=== PATIENT | male | born 2000 | race African-American/Black ===

== ENCOUNTER 2023-12-22 21:19 | Emergency (ER) | payer OTHER, SELFPAY ==
[2023-12-22 21:21] VITALS: BP 126/91; PULSE 88; RESP 18; TEMP 36.6; O2SAT 97; BMI 21.9
[2023-12-22 21:26] VITALS: O2SAT 97
[2023-12-22] MEDS: Albuterol Sulfate 8 gm Inhaler (60 puffs) 2 PUFF INHALATION (21:42)
== END 2023-12-22 22:02 | disposition home or self-care (01) ==
LOC: ED 21:59
PROVIDERS: Emergency Provider Emergency Medicine; Visit Provider Emergency Medicine
DX: R05.9 Cough, unspecified (principal); F17.290 Nicotine dependence, other tobacco product, uncomplicated
CPT/HCPCS: 71046; 94664; 99282